=== PATIENT | male | born 2000 | race Caucasian/White ===

== ENCOUNTER 2024-11-27 00:55 | Emergency (ER) | payer BC, SELFPAY ==
[2024-11-27 00:57] VITALS: BP 125/81; PULSE 54; RESP 16; TEMP 36.4; O2SAT 99
[2024-11-27] MEDS: LORATADINE 10 MG TABLET PO (01:54)
[2024-11-27] MEDS: hydrOXYzine HCL 25 MG TABLET PO (01:54)
[2024-11-27] MEDS: predniSONE 20 MG TABLET 40 MG PO (01:55)
[2024-11-27 02:03] VITALS: BP 117/85; PULSE 61; RESP 16; O2SAT 99
--- NOTE | 2024-11-27 02:04 | ED.SKABFB ---
HPI - Skin/Abscess/Foreign Bdy General Chief complaint: Skin/Abscess/Foreign Body Stated complaint: sun burn is itching Time Seen by Provider: 11/27/24 01:21 History of Present Illness HPI narrative: Patient presenting here with itching to his skin after sustaining a sunburn, he has already tried Benadryl with only minimal improvement, he has also tried hydrocortisone cream however the creams seemed to make his symptoms worse so he stopped. Related Data Allergies Allergy/AdvReac Type Severity Reaction Status Date / Time No Known Allergies Allergy Verified 11/27/24 01:52 Review of Systems Review of Systems: All systems reviewed & are unremarkable except as noted in HPI and below Exam Narrative: EXAMINATION OF ORGAN SYSTEMS/BODY AREAS: Constitutional: Vital signs per nursing GENERAL:[No acute distress, non-toxic appearing.] HEAD: Normal with no signs of head trauma. EYES: EOMI, conjunctiva normal ENT: Hearing grossly intact LUNGS: Nonlabored breathing. HEART: [Regular rate and rhythm] ABD: [Soft], [nontender to palpation] EXT: Normal range of motion SKIN: Sunburn noted to arms and back NEURO: [Alert and oriented x 3. No gross focal sensory or strength deficits.] PSYCH: Normal affect Course Vital Signs Vital signs: Vital Signs Temperature 97.6 F 11/27/24 00:57 Pulse Rate 54 L 11/27/24 00:57 Respiratory Rate 16 11/27/24 00:57 Blood Pressure 125/81 11/27/24 00:57 Pulse Oximetry 99 11/27/24 00:57 Oxygen Delivery Room Air 11/27/24 00:57 Temperature 97.6 F 11/27/24 00:57 Pulse Rate 54 L 11/27/24 00:57 Respiratory Rate 16 11/27/24 00:57 Blood Pressure 125/81 11/27/24 00:57 Pulse Oximetry 99 11/27/24 00:57 Oxygen Delivery Room Air 11/27/24 00:57 MDM - Skin/Abscess/Foreign Bdy MDM Narrative Medical decision making narrative: Patient presents with itching sunburn, he is very well-appearing here, does have a sunburn here but overall appears quite superficial, slightly pink to his arms and back. Since he cannot tolerate hydrocortisone cream I did start oral steroids, recommended additional cold compresses and aloe vera and started Claritin. Follow-up to PCP provided with return precautions Discharge Plan Discharge Clinical Impression: Sunburn Patient Disposition: Home Condition: Stable Instructions: Sunburn (ED) Additional Instructions: Please follow up with a PCP; try the medications as prescribed, you can always return for any further issues. Patient Language: [place] Prescriptions: New prednisone 20 mg tablet 40 mg PO DAILY 5 Days Qty: 10 0RF loratadine 10 mg tablet 10 mg PO DAILY Qty: 14 0RF Follow-up/Referrals: PHYSICIAN,[employer] [Primary Care Provider] - Chuy Baker MD [Physician] - 2 Days
== END 2024-11-27 02:15 | disposition home or self-care (01) ==
LOC: ANHED 01:51
PROVIDERS: Emergency Provider Emergency Medicine
DX: L55.0 Sunburn of first degree (principal)
CPT/HCPCS: 99283; A9270; J7512